=== PATIENT | male | born 1985 | race Caucasian/White ===

== ENCOUNTER 2018-06-07 00:46 | Emergency (ER) | payer OTHER ==
--- NOTE | 2018-06-07 01:21 | PDOC ---
History of Present Illness - General Stated Complaint: NEEDLE STICK Time Seen by Provider: 06/07/18 01:08 History Source: Patient Exam Limitations: No Limitations - History of Present Illness Initial Comments: 06/07/18 02:21 Best Contact: PCP: 0 Pmhx:Denies Pshx:Denies Allergies:NKDA FH:0 Social Hx: Cigarettes/ 0 Alcohol/ 0 Drugs/0 33-year-old male presents to the emergency department complaining of a needle stick to his left thumb. Patient is a nurse at [employer]. Patient states while treating a hypoglycemic known HIV patient with glucagon/IM to the thigh, patient removed the needle as the patient kicked his hand causing him to stick his left thumb. Patient states he washed it with copious water and vigorous scrubbing prior to his arrival to the ER. Patient denies numbness or tingling sensation. Patient denies any other complaints. Last tetanus within 5 years. Past History - Past Medical History Allergies/Adverse Reactions: Allergies Allergy/AdvReac Type Severity Reaction Status Date / Time No Known Allergies Allergy Verified 06/07/18 02:11 Home Medications: Ambulatory Orders Emtricitabine/Tenofovir [Truvada] 1 tab PO DAILY #3 tablet 06/07/18 Raltegravir [Isentress -] 400 mg PO BID #9 tab 06/07/18 Review of Systems - Review of Systems Able to Perform ROS?: Yes Comments:: 06/07/18 02:23 CONSTITUTIONAL: Absent: fever, chills, diaphoresis, generalized weakness, malaise, loss of appetite MUSCULOSKELETAL: Absent: myalgia, arthralgia, joint swelling SKIN: Absent: rash, itching, pallor HEMATOLOGIC/IMMUNOLOGIC: Absent: easy bleeding, easy bruising, lymphadenopathy, frequent infections Is the patient limited Swedish proficient: No *Physical Exam - Physical Exam Comments: 06/07/18 02:33 GENERAL: Well developed, well nourished. Awake and alert. No acute distress. EXTREMITIES: No cyanosis. No clubbing. No edema. No calf tenderness. SKIN: +left thumb pinpoint blood to volar pad Warm and dry. Normal capillary refill. No rashes. No jaundice. ED Treatment Course - LABORATORY CBC & Chemistry Diagram: 06/07/18 01:50 06/07/18 01:50 *DC/Admit/Observation/Transfer Diagnosis at time of Disposition: Exposure to body fluids by contaminated hypodermic needlestick - Discharge Dispostion Disposition: HOME Condition at time of disposition: Fair Decision to Admit order: No - Prescriptions Prescriptions: Emtricitabine/Tenofovir [Truvada] 1 tab PO DAILY #3 tablet Raltegravir [Isentress -] 400 mg PO BID #9 tab - Referrals Referrals: Katiuska Washington MD [Staff Physician] - Chuck Ortega MD [Staff Physician] - Henri Dueñas MD [Staff Physician] - Hamilton Wilson MD [Staff Physician] - - Patient Instructions Printed Discharge Instructions: How to Handle Body Fluid Exposure -- Healthcare Worker, DI for Accidental Exposure to Body Fluids Additional Instructions: It is imperative that you follow-up with infectious disease. I have listed for infectious disease physicians. Take the medication as prescribed until completion Return to the emergency department as needed for signs of infection to the left thumb where he accidentally got stuck with a contaminated needle. Some signs of infections would be swelling, redness, drainage, severe pain. - Post Discharge Activity
[2018-06-07] MEDS ORDERED: EMTRICITABINE 200MG/TENOFOVIR 300MG PO ONE (01:26)
[2018-06-07] MEDS ORDERED: RALTEGRAVIR POTASSIUM 400 MG TAB PO ONE (01:26)
[2018-06-07 02:07] LABS: BASO % 0.9 % (0-2.0); EOS % 4.6 % (0-4.5); HEMATOCRIT 45.5 % (35.4-49); HEMOGLOBIN 15.2 GM/dL (11.7-16.9); LYMPH % 29.6 % (8-40); MCH 28.7 pg (25.7-33.7); MCHC 33.3 g/dl (32.0-35.9); MEAN CELL VOLUME 86.3 fl (80-96); MEAN PLT VOLUME 8.8 fl (7.5-11.1); MONO % 12.5 % (3.8-10.2); NEUT % 52.4 % (42.8-82.8); PLATELET COUNT 291 K/MM3 (134-434); RBC 5.28 M/mm3 (4.00-5.60); RDW 13.3 % (11.9-15.9); WHITE BLOOD COUNT 6.8 K/mm3 (4.0-10.0)
[2018-06-07 02:15] VITALS: BP 153/79; PULSE 75; TEMP 97.1; BMI 29.5
[2018-06-07] MEDS ORDERED: HIV POST EXPOSURE PROPHYLAXIS KIT PO ONE (02:20)
[2018-06-07 02:36] LABS: ALBUMIN 4.1 g/dl (3.4-5.0); ALK PHOS 117 U/L (45-117); ANION GAP 6 MMOL/L (8-16); BILIRUBIN,TOTAL 0.3 mg/dL (0.2-1); BLOOD UREA NITROGEN 14 mg/dL (7-18); CALCIUM 9.4 mg/dL (8.5-10.1); CHLORIDE 108 mmol/L (98-107); CHOLESTEROL 145 mg/dL (50-200); CO2 26 mmol/L (21-32); CREATININE 0.9 mg/dL (0.55-1.3); GAMMA GLUTAMYL TRANSPEPTIDASE 26 U/L (5-85); GLUCOSE,RANDOM 121 mg/dL (74-106); LDH 160 U/L (87-246); PHOSPHOROUS 4.3 mg/dL (2.5-4.9); SGOT/AST 17 U/L (15-37); SGPT/ALT 23 U/L (13-61); SODIUM 140 mmol/L (136-145); TOT PROT 7.3 g/dl (6.4-8.2); TRIGLYCERIDES 68 mg/dL (0-150); URIC ACID 2.6 mg/dL (2.6-7.2)
[2018-06-08 06:06] LABS: HBSAG SCREEN Negative (Negative); HBsAG SCREEN Negative (Negative); HEP B CORE AB, TOT Negative (Negative)
[2018-06-08 08:06] LABS: HBSAG SCREEN Negative (Negative); HEP B CORE AB, TOT Negative (Negative)
== END 2018-06-07 04:16 | disposition home or self-care (01) ==
LOC: JER 00:46
DX: Z77.21 Contact with and (suspected) exposure to potentially hazardous body fluids (principal); S61.032A Puncture wound without foreign body of left thumb without damage to nail, initial encounter; W46.1XXA Contact with contaminated hypodermic needle, initial encounter; Y93.F9 Activity, other caregiving; Y92.128 Other place in nursing home as the place of occurrence of the external cause; Y99.0 Civilian activity done for income or pay
CPT/HCPCS: 36415; 80053; 82465; 82977; 83615; 84100; 84460; 84478; 84550; 85025; 86317; 86704; 86706; 86708; 86803; 87340; 87389; 99281-25